=== PATIENT | male | born 1945 | race Caucasian/White ===

== ENCOUNTER 2022-06-07 13:24 | Inpatient (IN) | payer OTHER, MEDICAID ==
[~2022-06-07] VITALS: Ht 167.6 cm; Wt 64.9 kg
[2022-06-07 13:25] VITALS: BP_SYST 94
--- NOTE | 2022-06-07 13:25 | NUR ---
BROUGHT IN BY [facility], TRIAGED, AWAITING ER BED AVAILABILITY
--- NOTE | 2022-06-07 14:08 | NUR ---
PLACED IN BED #2 AND REPORT GIVEN TO RANCHO
--- NOTE | 2022-06-07 14:10 | NUR ---
ER at bedside examining patient.
--- NOTE | 2022-06-07 14:45 | NUR ---
MOHR CATH 16 KOSOVAN INSERTED. NO TRAUMA OR BLOOD SEEN AFTER INSERTION. PT TOLERATED WELL. ABOUT 100 MLS OF URINE COLLETED FROM BAG AT THIS TIME.
[2022-06-07 15:15] LABS: BASOPHILS # (AUTO) 0.1 K/uL (0.0-0.2); BASOPHILS % (AUTO) 0.4 % (0.0-2.0); EOSINOPHILS % (AUTO) 0.1 % (0.0-4.0); LYMPHOCYTES # (AUTO) 0.3 K/uL (1.0-5.5); LYMPHOCYTES % (AUTO) 1.8 % (20.5-51.5); MEAN CORPUSCULAR VOLUME 91 fL (79.0-98.0); MONOCYTES # (AUTO) 0.4 K/uL (0.0-1.0); MONOCYTES % (AUTO) 2.1 % (1.7-9.3); NEUTROPHILS # (AUTO) 17.1 K/uL (1.8-7.7); NEUTROPHILS % (AUTO) 95.6 % (40.0-70.0); PLATELET COUNT (AUTO) 142 K/uL (130-430); RED CELL DISTRIBUTION WIDTH 14.5 % (9.0-15.0); WHITE BLOOD COUNT (AUTO) 17.9 K/uL (4.8-10.8)
[2022-06-07 15:54] LABS: ANION GAP 4 (5-15); CALCIUM 8.6 mg/dL (8.4-11.0); CHLORIDE 99 mmol/L (98-107); CREATININE 2.15 mg/dL (0.55-1.30); GLUCOSE 126 mg/dL (70-99); POTASSIUM 4.2 mmol/L (3.5-5.1); UREA NITROGEN, BLOOD 46 mg/dL (8-21)
[2022-06-07 16:00] LABS: ALANINE AMINOTRANSFERASE 41 U/L (12-78); ALBUMIN 2.8 g/dL (3.4-4.8); ASPARTATE AMINOTRANSFERASE 30 U/L (10-37); TOTAL BILIRUBIN 0.9 mg/dL (0.0-1.0)
[2022-06-07 16:04] LABS: BILIRUBIN,URINE 1+ (NEGATIVE); BLOOD, URINE 3+ (NEGATIVE); CLARITY/URINE CLOUDY (CLEAR); COLOR,URINE YELLOW (YELLOW); GLUCOSE,URINE NEGATIVE (NEGATIVE); KETONES,URINE NEGATIVE (NEGATIVE); LEUKOCYTE ESTERASE ,URINE 2+ (NEGATIVE); NITRITE, URINE NEGATIVE (NEGATIVE); PH,URINE 5.5 (5.0-8.0); PROTEIN URINE 1+ (NEGATIVE)
[2022-06-07] MEDS ORDERED: cefTRIAXone 1 GM IVPB PREMIX 50 ML IV ONE (17:30)
[2022-06-07 17:41] LABS: BACTERIA,URINE MODERATE /HPF (None Seen); RBC,URINE 50-80 /HPF (0-3); WBC,URINE 50-80 /HPF (0-3)
--- NOTE | 2022-06-07 18:32 | NUR ---
KARINE BLAND IN LAB, TALKED TO CIRCUIT BOARD DRAFTER. IN PROCESS
--- NOTE | 2022-06-07 19:22 | NUR ---
REPORT GIVEN TO ENA SOLER FOR CONTINUE OF CARE.
--- NOTE | 2022-06-07 19:30 | NUR ---
Assuming care for pt. Pt aaox4. RR even,nonlabored. PT admitted and is pending room assigned. VS are WNL. Will cont to monitor. Addendum: 06/07/22 at 2334 by [email or web address] Correction: Pt alert to name and bday only.
--- NOTE | 2022-06-07 22:19 | NUR ---
Admit bed requested Patient will be admitted to care of Admitted to Telemetry unit. Diagnosis UTI, BRITT Inpatient (Yes or No) yes Observation (Yes or No) no Orientation concerns or request close to nursing station (Yes or No) yes Covid Status negative On vent or bipap no Isolation requirements no Needs a sitter no From Home (Yes or if No enter name of facility) yes Requires Dialysis (Yes or No) no Med Rec Completed (Yes of No) yes
[2022-06-07] MEDS ORDERED: NALOXONE HCL 0.4 MG/ML AMP (NARCAN) IVP PRN (22:45)
[2022-06-07] MEDS ORDERED: MORPHINE 2 MG/ML INJ. SYRINGE IVP PRN (22:45)
--- NOTE | 2022-06-07 23:30 | NUR ---
Pt transferred to Tele 104B . Pt stable upon transfer. Bedside report to RYDER Clarke.
--- NOTE | 2022-06-07 23:42 | NUR ---
Admission Note Received patient from ER with diagnosis of urinary tract infection, acute kidney injury. Initial Plan of Care discussed-patient verbalized understanding.
[2022-06-08 00:10] VITALS: BP_SYST 115
[2022-06-08] MEDS: NACL 0.9% 1,000 ML IV SCH ×2 (00:36→14:28)
--- NOTE | 2022-06-08 02:00 | NUR ---
Approximately at this time patient rips out IV inserted from ER Addendum: 06/08/22 at 0731 by Antonio Doty RN Patient linens changed, patient cleaned.
--- NOTE | 2022-06-08 03:00 | NUR ---
New IV inserted approximately at this time LFA 20G
--- NOTE | 2022-06-08 07:30 | NUR ---
OPENING NOTE Patient in bed resting with eyes closed, no sign of distress or pain. Patient's breathing is nonlabored and even. IV site is clean, dry, intact, and patent running prescribed fluids. All needs met at this time and safety checks made.
--- NOTE | 2022-06-08 07:30 | NUR ---
CLOSING NOTES Patient resting in bed - no s/s pain or distress noted. Respirations even and unlabored - head of bed elevated. IV site patent - no s/s redness, infection, or infiltration. Bed locked and in lowest position. Call light within reach bed alarm on.
[2022-06-08 07:48] LABS: BASOPHILS % (AUTO) 0.3 % (0.0-2.0); EOSINOPHILS # (AUTO) 0.1 K/uL (0.0-0.4); EOSINOPHILS % (AUTO) 0.6 % (0.0-4.0); HEMATOCRIT 29.2 % (36-54); LYMPHOCYTES # (AUTO) 0.4 K/uL (1.0-5.5); LYMPHOCYTES % (AUTO) 3.4 % (20.5-51.5); MEAN CORPUSCULAR VOLUME 91 fL (79.0-98.0); MONOCYTES # (AUTO) 0.6 K/uL (0.0-1.0); MONOCYTES % (AUTO) 4.6 % (1.7-9.3); NEUTROPHILS % (AUTO) 91.1 % (40.0-70.0); PLATELET COUNT (AUTO) 132 K/uL (130-430); RED BLOOD CELL COUNT(AUTO) 3.22 MIL/uL (4.2-6.2); RED CELL DISTRIBUTION WIDTH 14.7 % (9.0-15.0); WHITE BLOOD COUNT (AUTO) 13.1 K/uL (4.8-10.8)
[2022-06-08 07:57] LABS: ALANINE AMINOTRANSFERASE 38 U/L (12-78); ALBUMIN 2.4 g/dL (3.4-4.8); ANION GAP 7 (5-15); ASPARTATE AMINOTRANSFERASE 43 U/L (10-37); CHLORIDE 100 mmol/L (98-107); CREATININE 1.38 mg/dL (0.55-1.30); GLUCOSE 69 mg/dL (70-99); POTASSIUM 3.7 mmol/L (3.5-5.1); TOTAL BILIRUBIN 0.6 mg/dL (0.0-1.0); UREA NITROGEN, BLOOD 37 mg/dL (8-21)
[2022-06-08 08:00] VITALS: BP_SYST 120
[2022-06-08 08:57] LABS: PROTHROMBIN TIME 10.6 SECS (9.5-12.5)
[2022-06-08 12:26] VITALS: BP_SYST 101
--- NOTE | 2022-06-08 13:09 | NUR ---
ULTRASOUND RESCHEDULED Patient was given a lunch tray despite being NPO. Spoke with hyperbaric technologist, and abdominal ultrasound will be rescheduled for tomorrow morning.
--- NOTE | 2022-06-08 15:37 | NUR ---
ROUNDS Patient in bed resting with eyes closed, no sign of distress or pain. Patient's breathing is nonlabored and even. Carrera catheter is patent and draining tayler urine to gravity. All needs met at this time and safety checks made.
[2022-06-08 16:12] VITALS: BP_SYST 120
--- NOTE | 2022-06-08 18:56 | NUR ---
CLOSING NOTE Patient sitting at the edge of the bed after eating dinner. No sign of distress and patient denies pain. Gaxiola catheter is patent and draining tayler urine to gravity. Patient has been cooperative throughout the shift; his orientation changes and he has moments of confusion where he attempts to ambulate or pull on his gaxiola catheter. Patient has been able to be redirected thus far. All needs met at this time and safety checks made. Will endorse to dough mixing machine operator nurse.
--- NOTE | 2022-06-08 19:15 | NUR ---
OPENING NOTE PT IS LYING IN BED WITH EYES CLOSED. NO APPARENT SIGNS OF DISTRESS NOTED AT THIS TIME. BED IS IN LOWEST POSITION WITH FALL AND SAFETY PRECAUTIONS IN PLACE. CALL LIGHT IN REACH, PT EDUCATED ON HOW TO USE IT. MOHR DRAINING TO GRAVITY. IV FLUIDS RUNNING ORDERED.
[2022-06-08 20:00] VITALS: BP_SYST 118
[2022-06-08] MEDS: LEVOFLOXACIN 250 MG/D5W 50 ML IV SCH (21:47)
[2022-06-09] VITALS: BP_SYST 120
[2022-06-09] MEDS: NACL 0.9% 1,000 ML IV SCH ×2 (04:00→14:45)
--- NOTE | 2022-06-09 04:59 | NUR ---
CONSULTATION PAGED/CALLED Reason for Consultation: ABNORMAL LABS Person Who was Notified: ANIYAH Consulting Physician: REBEKA Hardboard Grinder Specialty: Ordering Physician: NILAM
--- NOTE | 2022-06-09 07:21 | NUR ---
CLOSING NOTE PT IS LYING IN BED WITH EYES OPEN. PT IS MILDLY CONFUSED, LANGUAGE BARRIER IS PREVENTING FROM PT COMMUNICATING. NO APPARENT SIGNS OF DISTRESS NOTED AT THIS TIME. BED IS IN LOWEST POSITION WITH FALL AND SAFETY PRECAUTIONS IN PLACE. CALL LIGHT IN REACH. MOHR DRAINING TO GRAVITY. IV FLUIDS RUNNING ORDERED.
[2022-06-09 07:40] VITALS: BP_SYST 127
--- NOTE | 2022-06-09 07:40 | NUR ---
OPEN NOTE Received report from nightshift nurse. Patient is laying in bed resting. No pain, no SOB, no distress noted. A/O x 4 vietnamese/syriac speaking. Patient on RA sating 99%. IV to RFA 20g, patent on SL. Patient on bedrest with Carrera cath draining yellow urine to gravity. Call light within reach, bed locked in lowest position, all needs met at this time. Will continue to monitor.
[2022-06-09 11:40] VITALS: BP_SYST 126
--- NOTE | 2022-06-09 12:10 | NUR ---
PATIENT ROUNDS Patient is laying in bed resting. No pain, no SOB, no distress noted. Family at bedside. IV to RFA 20g, patent on SL. Patient on bedrest with Carrera cath draining yellow urine to gravity. Call light within reach, bed locked in lowest position, all needs met at this time. Will continue to monitor.
--- NOTE | 2022-06-09 15:10 | NUR ---
Dietitian Recommendations * Continue [facility] diet * Consider liberalized diet (Regular diet) if BG consistently trend low LP, MS, RD Please refer to Nutrition Assessment for details. Addendum: 06/09/22 at [address] Amended: Links added.
[2022-06-09 15:25] VITALS: BP_SYST 125
--- NOTE | 2022-06-09 16:04 | NUR ---
PATIENT ROUNDS Patient is laying in bed resting. No pain, no SOB, no distress noted. IV to RFA 20g, patent on SL. Patient on bedrest with Carrera cath draining yellow urine to gravity. Call light within reach, bed locked in lowest position, all needs met at this time. Will continue to monitor.
--- NOTE | 2022-06-09 17:15 | NUR ---
LAB UA was collected and submitted to lab for analysis.
[2022-06-09 19:15] VITALS: BP_SYST 118
--- NOTE | 2022-06-09 19:25 | NUR ---
PM ASSESSMENT; -Pt is a/xo1-2, resting in bed. Irish speaking only. NO s/s any acute distress noted. IV site patent drsg cdi. Fall precaution in place. Call light w/in reach, side rails x3, bed alarmed. Places near Nurses' station. Educated and instructed pt how to use call light for assistance and not to get OOB without using call, unable to discuss plan of care d/t cognitive limitation. Cont to monitor pt.
[2022-06-09] MEDS: LEVOFLOXACIN 250 MG/D5W 50 ML IV SCH (21:05)
--- NOTE | 2022-06-09 22:11 | NUR ---
ROUNDS; -Pt is laying in bed comfortably. No s/s pain,sob,or any acute distress. bed alarmed,side rails x3, call light w/in reach. Cont to monitor pt.
--- NOTE | 2022-06-10 00:30 | NUR ---
ROUNDS; -Pt is asleep in bed comfortably. No s/s pain,sob,or any acute distress. bed alarmed,side rails x3, call light w/in reach. Cont to monitor pt.
[2022-06-10 00:54] VITALS: BP_SYST 110
[2022-06-10 01:18] VITALS: BP_SYST 121
--- NOTE | 2022-06-10 01:20 | NUR ---
PAIN MGMT; -Pt is c/o generalized pain, gave Morphine 1mg IVP for pain mgmt. HC=604/63, 70,i4qxt=33% r/a, 18. Will reassess pain level w/in 30 mins. Call light w/in reach, side rails x3, bed alarmed. Cont to monitor pt.
--- NOTE | 2022-06-10 03:23 | NUR ---
ROUNDS; -Pt is asleep in bed comfortably. No s/s pain,sob,or any acute distress. bed alarmed,side rails x3, call light w/in reach. Cont to monitor pt.
--- NOTE | 2022-06-10 06:34 | NUR ---
ROUNDS; -Pt is asleep in bed comfortably. No s/s pain,sob,or any acute distress. Carrera cath w/ gravity drains yellow urine output. bed alarmed,side rails x3, call light w/in reach. Will endorse to next nurse to cont care.
[2022-06-10 07:35] VITALS: BP_SYST 127
--- NOTE | 2022-06-10 07:35 | NUR ---
OPEN NOTE Received report from nightshift nurse. Patient is laying in bed resting. No pain, no SOB, no distress noted. A/O x 4 turks and ca[place] islander/maltese speaking. Patient on RA sating 99%. IV to RFA 20g, patent on infusion pump. Patient on bedrest with Carrera cath draining yellow urine to gravity. Call light within reach, bed locked in lowest position, all needs met at this time. Will continue to monitor.
[2022-06-10 11:46] LABS: CHLORIDE 105 mmol/L (98-107); UREA NITROGEN, BLOOD 15 mg/dL (8-21)
[2022-06-10 12:00] VITALS: BP_SYST 141
[2022-06-10 15:51] LABS: BASOPHILS # (AUTO) 0.1 K/uL (0.0-0.2); EOSINOPHILS # (AUTO) 0.1 K/uL (0.0-0.4); EOSINOPHILS % (AUTO) 1.8 % (0.0-4.0); HEMATOCRIT 27.3 % (36-54); LYMPHOCYTES # (AUTO) 0.8 K/uL (1.0-5.5); LYMPHOCYTES % (AUTO) 13.3 % (20.5-51.5); MEAN CORPUSCULAR VOLUME 92 fL (79.0-98.0); MONOCYTES # (AUTO) 0.5 K/uL (0.0-1.0); NEUTROPHILS # (AUTO) 4.4 K/uL (1.8-7.7); NEUTROPHILS % (AUTO) 74.9 % (40.0-70.0); PLATELET COUNT (AUTO) 119 K/uL (130-430); RED BLOOD CELL COUNT(AUTO) 2.97 MIL/uL (4.2-6.2); RED CELL DISTRIBUTION WIDTH 14.9 % (9.0-15.0); WHITE BLOOD COUNT (AUTO) 5.9 K/uL (4.8-10.8)
[2022-06-10 16:00] VITALS: BP_SYST 140
[2022-06-10 16:34] LABS: ANION GAP 12 (5-15); CALCIUM 7.9 mg/dL (8.4-11.0); CREATININE 0.83 mg/dL (0.55-1.30); GLUCOSE 98 mg/dL (70-99)
--- NOTE | 2022-06-10 18:41 | NUR ---
CLOSING NOTE Received report from nightshift nurse. Patient is laying in bed resting. No pain, no SOB, no distress noted. A/O x 4 greenlandic/danish speaking. Patient on RA sating 99%. IV to RFA 20g, patent on infusion pump. Patient on bedrest with Carrera cath draining urine to gravity. Call light within reach, bed locked in lowest position, all needs met at this time. Will endorse to nightshift nurse.
[2022-06-10 21:00] VITALS: BP_SYST 137
[2022-06-10] MEDS: LEVOFLOXACIN 250 MG/D5W 50 ML IV SCH (21:32)
[2022-06-10] MEDS: NACL 0.9% 1,000 ML IV SCH (21:33)
--- NOTE | 2022-06-11 | NUR ---
Patient awake assist out of bed to BSC , FALL RISK MEASURES implemented skin dry warm no SOB noted procedures explained call ribeiro given to patient / .
[2022-06-11 01:00] VITALS: BP_SYST 143
--- NOTE | 2022-06-11 03:53 | NUR ---
DR DAYANA ALMENDAREZ ID here to see patient and at the bedside / .
[2022-06-11] MEDS: NACL 0.9% 1,000 ML IV SCH ×2 (06:45→22:23)
[2022-06-11 08:00] VITALS: BP_SYST 150
--- NOTE | 2022-06-11 08:00 | NUR ---
Initial Notes Patient is AOx3. No acute s.s of distress noted. Breathing is even and nonlabored, on room air. Denies pain. Vital signs obtained, as documented. Mir SOB. Patient's IV is patent. Carrera catheter care done, draining by gravity. Patient is sitting at edge of bed, eating breakfast. Bed locked, alarm on, and at lowest position. Call light within reach.
--- NOTE | 2022-06-11 11:30 | NUR ---
New IV Patient's IV was pulled out while using bedside commode. New IV inserted, 20G L AC. IV flushed well. Patent. Patient back in bed. Alarm on, bed at lowest position, and bed locked. Call light within reach.
[2022-06-11 11:31] VITALS: BP_SYST 115
[2022-06-11] MEDS ORDERED: ACETAMINOPHEN 500 MG TABLET PO PRN ×2 (13:15→13:45)
[2022-06-11] MEDS ORDERED: MELOXICAM 7.5 MG TABLET PO ONE (13:15)
[2022-06-11] MEDS ORDERED: glipiZIDE XL 2.5 MG/TAB (GLUCOTROL XL) PO ONE (13:15)
[2022-06-11] MEDS ORDERED: INSULIN LISPRO SLIDING SCALE 100 UNITS/ML, 3 ML VIAL (humaLOG) SUBCUT PRN (13:15)
[2022-06-11] MEDS ORDERED: CALCIUM CARBONATE/VITAMIN D3 1 TAB TABLET PO ONE (13:15)
[2022-06-11] MEDS ORDERED: PANTOPRAZOLE SODIUM 40 MG TAB PO ONE (13:15)
[2022-06-11] MEDS ORDERED: BENA1TAB19 PO (13:28)
[2022-06-11] MEDS ORDERED: PRO40 PO (13:28)
[2022-06-11] MEDS ORDERED: CLON-433 PO (13:28)
[2022-06-11] MEDS ORDERED: MELO-89 PO (13:28)
[2022-06-11] MEDS ORDERED: FERR-69 PO (13:28)
[2022-06-11] MEDS ORDERED: SSNOVOLOG SUBCUT (13:28)
[2022-06-11] MEDS ORDERED: CALC-939 PO (13:28)
[2022-06-11] MEDS ORDERED: GLIP2.5T3 PO (13:28)
[2022-06-11] MEDS ORDERED: TAMS-11 PO (13:28)
[2022-06-11] MEDS ORDERED: ACET-73 PO (13:28)
[2022-06-11 15:37] VITALS: BP_SYST 130
--- NOTE | 2022-06-11 16:09 | NUR ---
Notes Patient is resting, eyes closed. No s./s of distress noted. Breathing is even and nonlabored, on room air. Bed locked, alarm on, and at lowest position. Call light within reach.
--- NOTE | 2022-06-11 19:12 | NUR ---
[facility] , ADMITTING AT [facility]. PER CHAMA, CLINICALS RECEIVED WERE INCOMPLETE AND ARE NOT EXPECTING PATIENT TONIGHT. THEY WILL ACCEPT PATIENT TOMORROW
--- NOTE | 2022-06-11 19:36 | NUR ---
Closing Notes Patient finished eating dinner. Patient is resting in bed, eyes closed. No acute s.s of distress noted. NO SOB. Denies pain. Breathing is even and nonlabored on room air. IV got infiltrated. New IV 20G R FA. IV flushed well. Patent. IV fluids running. Carrera catheter draining via gravity. Patient to be discharged tomorrow, facility not expecting patient tonight as clinicals were incomplete. All needs met. Safety precautions in place and call light within reach. Endorse care to RYDER Reardon.
[2022-06-11 20:00] VITALS: BP_SYST 137
[2022-06-11] MEDS ORDERED: TAMSULOSIN HCL 0.4 MG CAP PO SCH (21:00)
[2022-06-11] MEDS: LEVOFLOXACIN 250 MG/D5W 50 ML IV SCH (22:14)
[2022-06-11] MEDS: glipiZIDE XL 2.5 MG/TAB (GLUCOTROL XL) PO SCH (22:17)
[2022-06-12 01:20] VITALS: BP_SYST 146
--- NOTE | 2022-06-12 07:33 | NUR ---
Report received from RYDER Patel for continuity of care. Patient stable condition.
--- NOTE | 2022-06-12 07:34 | NUR ---
Report received from RYDER Patel for continuity of care. Patient stable condition.
[2022-06-12 08:00] VITALS: BP_SYST 125
[2022-06-12] MEDS: glipiZIDE XL 2.5 MG/TAB (GLUCOTROL XL) PO SCH (08:45)
--- NOTE | 2022-06-12 08:52 | NUR ---
Discharge Planning: DCP faxed pt med list to [facility] [phone], CAMILO for [facility] at [facility] [phone] for transport auth. ANTHONYP to follow up Addendum: 06/12/22 at 1347 by Adenike Farias DP [facility] arranged transport with [facility] [phone] BLS 4:00pm to [facility] [phone] Rm 11B. ANTHONYP made CM and nurse aware. Patient packet taken to nurse station. Addendum: 06/12/22 at 1413 by Adenike Farias DP Discharge Planning: CAMILO arrange transport with [facility] [phone] BLS 4:00pm to [facility] [phone] Rm 11B. DCP made CM and nurse aware, pateint packet taken to nurse station.
[2022-06-12] MEDS ORDERED: MELOXICAM 7.5 MG TABLET PO SCH (09:00)
[2022-06-12] MEDS ORDERED: PANTOPRAZOLE SODIUM 40 MG TAB PO SCH (09:00)
[2022-06-12] MEDS ORDERED: CALCIUM CARBONATE/VITAMIN D3 1 TAB TABLET PO SCH (09:00)
[2022-06-12 11:37] VITALS: BP_SYST 129
[2022-06-12 14:43] VITALS: BP_SYST 144
[2022-06-12 15:23] VITALS: BP_SYST 144
--- NOTE | 2022-06-13 08:18 | NUR ---
Disposition code 03
== END 2022-06-12 08:52 | DRG 871 ==
LOC: SED 13:24 → STU 22:16 → SMU 06-09 11:13
PROVIDERS: ADMIT Internal Medicine; ATTEND Internal Medicine
PROC: 0T9B70Z Drainage of Bladder with Drainage Device, Via Natural or Artificial Opening (ICD-10-PCS; principal; 2022-06-07)
DX: A41.9 Sepsis, unspecified organism (principal); E43 Unspecified severe protein-calorie malnutrition; N17.9 Acute kidney failure, unspecified; I42.9 Cardiomyopathy, unspecified; I44.2 Atrioventricular block, complete; N39.0 Urinary tract infection, site not specified; R33.9 Retention of urine, unspecified; D50.9 Iron deficiency anemia, unspecified; E11.9 Type 2 diabetes mellitus without complications; I10 Essential (primary) hypertension; M19.90 Unspecified osteoarthritis, unspecified site; N28.1 Cyst of kidney, acquired; N40.0 Benign prostatic hyperplasia without lower urinary tract symptoms; R31.0 Gross hematuria; B96.1 Klebsiella pneumoniae [K. pneumoniae] as the cause of diseases classified elsewhere; Z20.822 Contact with and (suspected) exposure to COVID-19; R33.8 Other retention of urine; Z86.16 Personal history of COVID-19; Z95.0 Presence of cardiac pacemaker; Z68.23 Body mass index [BMI] 23.0-23.9, adult
CPT/HCPCS: 36415; 76770; 80048; 80053; 81000; 82043; 82570; 83735; 84100; 85025; 85610-TC; 85730-TC; 87081; 87086; 96374; 99285; G0378; J0696; J1956; J2270